=== PATIENT | female | born 1985 | race Caucasian/White ===

== ENCOUNTER 2018-07-24 11:47 | Emergency (ER) | payer OTHER ==
[2018-07-24 12:06] VITALS: BP 132/86; PULSE 110; RESP 16; TEMP 97.8; O2SAT 100
== END 2018-07-24 12:23 | disposition home or self-care (01) | DRG 605 ==
LOC: ED 11:47
DX: S80.02XA Contusion of left knee, initial encounter (principal)
CPT/HCPCS: 99282